=== PATIENT | female | born 1980 ===

== ENCOUNTER 2020-12-04 09:39 | Emergency (ER) | payer SELFPAY ==
[2020-12-04] MEDS ORDERED: dexAMETHasone 20 MG/5 ML VIAL IM STA (10:03)
[2020-12-04] MEDS ORDERED: IBUPROFEN 800 MG TAB PO ONE (10:03)
--- NOTE | 2020-12-04 10:06 | Emergency Department Report ---
ED Fever HPI - General Chief Complaint: Dyspnea/Respdistress Stated Complaint: COVID POSITIVE/YESTERDAY PUI?: Yes Time Seen by Provider: 12/04/20 09:59 Source: patient Exam Limitations: no limitations, language barrier - History of Present Illness Initial Comments: Chief complaint: Covid HPI: This is a 40-year-old female without significant past medical history who recently tested positive for Covid infection. Patient has headache fever pain in the right side of the back when she takes a deep breath. She has loss of taste and smell. Patient has been ill for 3 days. language interpreter at the bedside provided interpretation during history and discharge. Timing/Duration: other (Several days) Fever Severity/Quality: subjective Associated Symptoms: cough, shortness of breath ED Review of Systems ROS: Stated complaint: COVID POSITIVE/YESTERDAY Other details as noted in HPI Comment: All other systems reviewed and negative Constitutional: fever, malaise Respiratory: cough, shortness of breath Musculoskeletal: back pain ED Past Medical Hx - Past Medical History Previous Medical History?: No - Surgical History Past Surgical History?: No - Social History Smoking Status: Never Smoker Substance Use Type: None - Medications Home Medications: Home Medications Medication Instructions Recorded Confirmed Last Taken Type Hydrocodone/Chlorphen P-Stirex 5 ml PO BID PRN #115 ml 12/04/20 Unknown Rx [Tussionex Pennkinetic Susp] Ibuprofen [Motrin 800 MG tab] 800 mg PO Q8HR PRN #20 tablet 12/04/20 Unknown Rx ED Physical Exam - General Limitations: No Limitations General appearance: alert, in no apparent distress, other (Appears nontoxic speaking for sentences) - Head Head exam: Present: atraumatic, normocephalic - Eye Eye exam: Present: normal appearance - ENT ENT exam: Present: mucous membranes moist - Neck Neck exam: Present: normal inspection - Respiratory Respiratory exam: Present: normal lung sounds bilaterally. Absent: respiratory distress, wheezes, rales, rhonchi - Cardiovascular Cardiovascular Exam: Present: regular rate, normal rhythm, normal heart sounds. Absent: systolic murmur, diastolic murmur, rubs, gallop - GI/Abdominal GI/Abdominal exam: Present: soft, normal bowel sounds. Absent: distended, tenderness, guarding, rebound - Extremities Exam Extremities exam: Present: normal inspection - Neurological Exam Neurological exam: Present: alert, oriented X3 - Psychiatric Psychiatric exam: Present: normal affect, normal mood - Skin Skin exam: Present: warm, dry, intact, normal color. Absent: rash ED Course Vital Signs 12/04/20 09:52 Temperature 99.8 F H Pulse Rate 96 H Respiratory 22 Rate Blood Pressure 137/73 O2 Sat by Pulse 95 Oximetry ED Medical Decision Making - Radiology Data Radiology results: report reviewed [facility] [address] [place] [address] XRay Report Signed Patient: REYES PARADA MR#: [id number] : 1980 Acct:[id number] Age/Sex: 40 / F ADM Date: 12/04/20 Loc: ED Attending Dr: Ordering Physician: Cecille Jimenez MD Date of Service: 12/04/20 Procedure(s): XR chest 1V ap Accession Number(s): [id number] cc: Cecille Jimenez MD Fluoro Time In Minutes: XR chest 1V ap INDICATION / CLINICAL INFORMATION: Covid back pain. COMPARISON: None available. FINDINGS: SUPPORT DEVICES: None. HEART /PULMONARY VASCULATURE: No significant abnormality. LUNGS / PLEURA: Mild basilar predominant interstitial opacities are present. No sizable pleural effusion. No pneumothorax. ADDITIONAL FINDINGS: No significant additional findings. IMPRESSION: Mild bibasilar pulmonary opacities, consistent with reported history of COVID. Signer Name: Earline Garcia MD Signed: 12/04/2020 10:34 AM Workstation Name: [id number] Transcribed By: JS Dictated By: EARLINE GARCIA MD Electronically Authenticated By: EARLINE GARCIA MD Signed Date/Time: 12/04/20 1034 DD/ 1033 TD/TT: - Medical Decision Making Covid pneumonia: PERC negative for PE, room air oxygen saturation 95%. Patient given verbal education with language interpreter. Prescribed ibuprofen Tussionex Critical care attestation.: If time is entered above; I have spent that time in minutes in the direct care of this critically ill patient, excluding procedure time. ED Disposition Clinical Impression: Pneumonia due to COVID-19 virus Disposition: HOME / SELF CARE / HOMELESS Is pt being admited?: No Does the pt Need Aspirin: No Condition: Stable Instructions: Bacterial Pneumonia (ED), COVID-19 Prescriptions: Ibuprofen [Motrin 800 MG tab] 800 mg PO Q8HR PRN #20 tablet PRN Reason: Pain , Severe (7-10) Hydrocodone/Chlorphen P-Stirex [Tussionex Pennkinetic Susp] 5 ml PO BID PRN #115 ml PRN Reason: Cough Print Language: ECUADOREAN
--- NOTE | 2020-12-04 10:39 | XRay Report ---
XR chest 1V ap INDICATION / CLINICAL INFORMATION: Covid back pain. COMPARISON: None available. FINDINGS: SUPPORT DEVICES: None. HEART /PULMONARY VASCULATURE: No significant abnormality. LUNGS / PLEURA: Mild basilar predominant interstitial opacities are present. No sizable pleural effus ion. No pneumothorax. ADDITIONAL FINDINGS: No significant additional findings. IMPRESSION: Mild bibasilar pulmonary opacities, consistent with reported history of COVID. Signer Name: Kane Garcia MD Signed: 12/04/2020 10:34 AM Workstation Name: [id number]
[2020-12-04 11:21] VITALS: BP 116/60
== END 2020-12-04 11:00 | disposition home or self-care (01) ==
LOC: ED 09:39
DX: U07.1 COVID-19 (principal); J12.82 Pneumonia due to coronavirus disease 2019; Z79.899 Other long term (current) drug therapy
CPT/HCPCS: 71045; 96372; 99283; J1100